=== PATIENT | female | born 1950 | race Caucasian/White ===

== ENCOUNTER 2017-07-26 06:20 | Day surgery (SDC) | payer MEDICARE, BC ==
[2017-07-26] MEDS ORDERED: Midazolam 1 MG/ML 2 ML SDV ONE (07:10)
[2017-07-26] MEDS ORDERED: fentaNYL 100 MCG/2 ML SDV ONE (07:10)
[2017-07-26] MEDS ORDERED: Propofol 200 MG/20 ML SDV ONE (07:10)
[2017-07-26] MEDS: Lactated Ringers 1,000 ML IV SCH (07:15)
--- NOTE | 2017-07-26 09:10 | OR ---
DATE OF PROCEDURE: 07/26/2017 PREOPERATIVE DIAGNOSES: Constipation, diarrhea, bloating, abdominal pain. POSTOPERATIVE DIAGNOSES: Constipation, diarrhea, bloating, abdominal pain, diverticulosis, incomplete colonoscopy. PROCEDURE: Colonoscopy attempted, successful only to about 20 cm from the anal verge. SURGEON: Jesús Nelson MD. ANESTHESIA: IV anesthesia with monitored anesthesia care. INDICATION: This 66-year-old white female is referred for a colonoscopy because of constipation alternating with diarrhea, bloating, and abdominal pain. She says her last colonoscopic exam was done in 2010. I counseled her for the procedure including risks and alternatives, and she gave her informed consent to proceed. DESCRIPTION OF PROCEDURE: The patient was placed in the left lateral decubitus position. IV anesthesia was administered by the Anesthesia Service. Time-out was held. A rectal exam was performed, which was unremarkable. The flexible video Olympus colonoscope was introduced through her anus, up her rectum, and out her colon. We were only able to go as far as 20 cm. At this point, the colon doubled back on itself. We could not negotiate around the corner. We attempted several maneuvers including applying abdominal compression with the patient in the left lateral and supine positions. It was clear we were not going to be able to go any higher. The scope was then slowly withdrawn , examining the distal colon and rectum. We saw a single small diverticulum. No other lesions were noted. The scope was retroflexed in the rectum with the distal rectum appearing unremarkable. The scope was straightened and removed. She tolerated the procedure well. I will order a barium enema. Jesús Nelson MD /[id number]
[2017-07-26] MEDS: Barium Sulfate 105% w/v Susp 1,900 ML Bottle PO ONE (09:13)
[2017-07-26 09:42] VITALS: BP 132/53
--- NOTE | 2017-07-26 10:08 | CR ---
Barium Enema Comp HISTORY: Incomplete colonoscopy. FINDINGS: Thin barium was administered retrograde into the colon. The colon demonstrates normal diste nsibility. There are a few scattered diverticula of the sigmoid colon. There is no evidence of coloni c stricture. No mucosal polyps are seen. There is reflux into a normal-appearing terminal ileum. Impression: 1. Colonic diverticulosis. 2. No stricture or mucosal polyp seen.
== END 2017-07-26 10:00 | disposition home or self-care (01) ==
LOC: JP.SDS 06:20
PROVIDERS: ATTEND Surgery
DX: K59.00 Constipation, unspecified (principal); K57.30 Diverticulosis of large intestine without perforation or abscess without bleeding; K21.9 Gastro-esophageal reflux disease without esophagitis; R19.7 Diarrhea, unspecified; Z88.5 Allergy status to narcotic agent
CPT/HCPCS: 74270; 74270-26; J2250; J2704; J3010; J7120

== ENCOUNTER 2018-12-16 11:08 | Emergency (ER) | payer MEDICARE ==
[2018-12-16 11:28] VITALS: BP 120/69; PULSE 51
--- NOTE | 2018-12-16 11:45 | EDM.PDOC ---
ED HPI GENERAL MEDICAL PROBLEM - General Chief Complaint: Lower Extremity Injury/Pain Stated Complaint: right foot surgery on toe Time Seen by Provider: 12/16/18 11:44 Source of Information: Reports: Patient, Family History Limitations: Reports: No Limitations - History of Present Illness INITIAL COMMENTS - FREE TEXT/NARRATIVE: Alert very pleasant 68 year old female presents to Er for worsening right foot pain over the last 24 hours. Patient had a bone spur removed from right medial great toe on Monday with direct service professional. Patient has been doing fairly well until yesterday afternoon patient noted increased pain with burning and irritation in surgical area and proximal. Patient states the pain is worse when the foot is elevated. Patient has been wearing her boot and elevating as much as possible Patient contacted the nurse line and ibuprofen/Motrin was recommended. Patient took 600mg last night and again at 8 am this morning. Patient has hydroxyzine 25 mg which she took at 6 am and hydrocodone which she took one at 8 am. Patient is due to hydroxyzine and hydrocodone at this time. Right Feet Pain Score (Numeric/FACES): 3 - Related Data Allergies Allergy/AdvReac Type Severity Reaction Status Date / Time codeine Allergy Hives Verified 07/26/17 06:52 Home Meds: Home Meds Esomeprazole [NexIUM] 40 mg PO DAILY 10/27/13 [History] Lovastatin 20 mg PO DAILY 10/27/13 [History] Pramipexole [Mirapex] 1 mg PO DAILY 10/27/13 [History] Sertraline HCl 100 mg PO DAILY 10/27/13 [History] Verapamil HCl [Verapamil ER] 120 mg PO DAILY 10/27/13 [History] Loratadine/Pseudoephedrine [Alavert D-12 Allergy-Sinus] 1 tab PO DAILY PRN 07/24 [History] traMADol HCl [Ultram] 50 mg PO Q6HR PRN 07/24/17 [History] Hydrocodone/Acetaminophen [Hydrocodon-Acetaminophen 5-325] 1 tab PO QID [History] hydrOXYzine pamoate [Hydroxyzine Pamoate] 25 mg PO TID PRN 12/16/18 [History] Past Medical History HEENT History: Reports: Allergic Rhinitis, Impaired Vision Cardiovascular History: Reports: Arrhythmia, High Cholesterol, Other (See Below) Other Cardiovascular History: PVC Respiratory History: Reports: Bronchitis, Recurrent Gastrointestinal History: Reports: Chronic Constipation, GERD Genitourinary History: Reports: Renal Calculus 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 Neck surgery from [facility] Psychiatric History: Reports: Anxiety Hematologic History: Reports: Anemia Oncologic (Cancer) History: Reports: Basal Cell Carcinoma, Other (See Below) Other Oncologic History: Vaginal precancerous tumor removed. Dermatologic History: Reports: Other (See Below) Other Dermatologic History: Basal cell - back of hand - Infectious Disease History Infectious Disease History: Reports: Chicken Pox, Measles, Mumps, Shingles - Past Surgical History HEENT Surgical History: Reports: None Respiratory Surgical History: Reports: None GI Surgical History: Reports: Appendectomy, Cholecystectomy, Colonoscopy Female Surgical History: Reports: Hysterectomy, Salpingo-Oophorectomy Musculoskeletal Surgical History: Reports: Carpal Tunnel, Other (See Below) Other Musculoskeletal Surgeries/Procedures:: Jaw surgery from [facility] Oncologic Surgical History: Reports: None Dermatological Surgical History: Reports: Skin Biopsy Social & Family History - Caffeine Use Caffeine Use: Reports: Tea Review of Systems - Review of Systems Review Of Systems: ROS reveals no pertinent complaints other than HPI. ED EXAM, GENERAL - Physical Exam Exam: See Below Exam Limited By: No Limitations General Appearance: Alert, WD/WN, Mild Distress (right foot pain) Eye Exam: Bilateral Eye: EOMI, PERRL Ears: Normal External Exam, Normal Canal, Hearing Grossly Normal Nose: Normal Inspection, Normal Mucosa Throat/Mouth: Normal Inspection, Normal Lips, Normal Teeth, Normal Gums, Normal Oropharynx, Normal Voice, No Airway Compromise Respiratory/Chest: No Respiratory Distress, Lungs Clear, Normal Breath Sounds, No Accessory Muscle Use Cardiovascular: Normal Peripheral Pulses, Regular Rate, Rhythm Extremities: Normal Inspection, Normal Range of Motion, No Pedal Edema, Joint Swelling (Right Foot: Splint and post surgical dressing was removed. surgical incision intact. erythema and pain proximal over extensor tendon of great toe and localized pain with erthyema and swelling over lateral surgical incision. Numbness and no pain medial to surgical incision. No signs of concerning post surgical infection.) Neurological: Alert, Oriented, CN II-XII Intact Psychiatric: Normal Affect, Normal Mood Skin Exam: Warm, Dry, Intact, Normal Color, No Rash ED TRAUMA EXTREMITY PROCEDURES - Additional/Other Procedure(s) Other (Free Text) Procedure(s): Post surgical splint and dressing removed, by me. Course - Vital Signs Last Recorded V/S: Last Vital Signs Temp 36.6 C 12/16/18 12:01 Pulse 51 L 12/16/18 12:01 Resp 17 12/16/18 12:01 BP 120/69 12/16/18 12:01 Pulse Ox 97 12/16/18 12:01 - Orders/Labs/Meds Meds: Medications Discontinued Medications Generic Name Dose Route Start Last Admin Trade Name Rubi PRN Reason Stop Dose Admin Bacitracin 1 dose 12/16/18 12:45 12/16/18 12:48 Bacitracin Oint 1 Gm TOP 12/16/18 12:46 1 dose ONETIME ONE Administration - Re-Assessments/Exams Free Text/Narrative Re-Assessment/Exam: Dressing was replaced by myself due to ER visit and splint reapplied. Patient' s pain is much improved and resting. Patient is able to ambulate and comfortable going home with . 12/16/18 13:01 Departure - Departure Time of Disposition: 12:57 Disposition: Home, Self-Care 01 Clinical Impression: Foot pain, right - Discharge Information Referrals: Foreign Davis MD [Primary Care Provider] - Forms: ED Department Discharge Additional Instructions: 1. Elevate as much as possible. Wear splint at all times as directed. 2. Continued Ibuprofen 600mg every 6 hours with food for pain and swelling. OR 3. Aleve 440mg 1-2 tablets every 12 hours for pain and swelling. 4. Continue Hydrocodone 1 tablet every 4-6 hrs for moderate to severe pain. 5. Continue Hydroxyzine 1 tablet every 6 hrs as directed for nausea, itching and pain. 6. See Surgeon on Monday as planned. Call if continued concerns today or tomorrow. 7. Return to ER to if severe pain, fever or unable to worsening symptoms or concerns. - Problem List & Annotations (1) Great toe pain SNOMED Code(s): 341340783 Code(s): M79.676 - PAIN IN UNSPECIFIED TOE(S) Status: Acute Current Visit : No
[2018-12-16] MEDS ORDERED: Bacitracin Oint 1 GM U/D Packet TOP ONE (12:45)
== END 2018-12-16 13:15 | disposition home or self-care (01) ==
LOC: JP.ED 11:08
DX: G89.18 Other acute postprocedural pain (principal); M79.674 Pain in right toe(s); F41.9 Anxiety disorder, unspecified; E78.00 Pure hypercholesterolemia, unspecified; Z88.5 Allergy status to narcotic agent; Z90.49 Acquired absence of other specified parts of digestive tract; Z90.722 Acquired absence of ovaries, bilateral; Z90.710 Acquired absence of both cervix and uterus; Z79.899 Other long term (current) drug therapy
CPT/HCPCS: 99283

== ENCOUNTER 2020-01-27 16:32 | Emergency (ER) | payer MEDICARE ==
[2020-01-27 18:02] VITALS: BP 181/103; PULSE 47
[2020-01-27] MEDS ORDERED: Sodium Chloride 0.9% 10 ML Syringe FLUSH PRN (18:11)
[2020-01-27] MEDS ORDERED: Morphine 2 MG/ML SYRINGE IVPUSH ONE (18:20)
[2020-01-27] MEDS ORDERED: Aspirin 81 MG Tab.Chew PO ONE (18:20)
[2020-01-27] MEDS ORDERED: Ondansetron 4 MG/2 ML SDV IVPUSH ONE (18:20)
--- NOTE | 2020-01-27 18:26 | EDM.PDOC ---
ED HPI GENERAL MEDICAL PROBLEM - General Chief Complaint: Gastrointestinal Problem Stated Complaint: WEAK,ABD PAIN Time Seen by Provider: 01/27/20 18:10 Source of Information: Reports: Patient, Old Records, RN History Limitations: Reports: No Limitations - History of Present Illness INITIAL COMMENTS - FREE TEXT/NARRATIVE: 69 yo female presents with upper abdomen since yesterday. Pain now lying in the ER is not bad. Has had nausea and vomiting with this. No abnormal BM's. Mild SOB with exertion. Has a pHx of surgery on her abdomen for her GB, appendix and adhesions. Took all her meds this morning. Thinks her normal HR is in the 50's, was 51 when last here 13 mos ago. No change with eating today, although she ate little. Onset: Gradual Onset Date: 01/26/20 Duration: Day(s): (1.5), Waxing/Waning Location: Reports: Chest Quality: Reports: Dull Severity: Mild Improves with: Reports: Rest Worsens with: Reports: Movement Context: Reports: Other (See HPI) Associated Symptoms: Reports: Chest Pain, Nausea/Vomiting, Shortness of Breath (mild with exertion only). Denies: Cough, Fever/Chills Treatments CLASSROOM AIDE: Reports: Other (see below) (none) Abdominal Pain Score (Numeric/FACES): 9 - Related Data Allergies Allergy/AdvReac Type Severity Reaction Status Date / Time codeine Allergy Hives Verified 01/27/20 18:03 Home Meds: Home Meds Esomeprazole [NexIUM] 40 mg PO DAILY 10/27/13 [History] Lovastatin 20 mg PO DAILY 10/27/13 [History] Pramipexole [Mirapex] 1 mg PO DAILY 10/27/13 [History] Sertraline HCl 100 mg PO DAILY 10/27/13 [History] Verapamil HCl [Verapamil ER] 120 mg PO DAILY 10/27/13 [History] Loratadine/Pseudoephedrine [Alavert D-12 Allergy-Sinus] 1 tab PO DAILY PRN 07/24/17 [History] Oxybutynin 5 mg PO DAILY 01/27/20 [History] Past Medical History HEENT History: Reports: Allergic Rhinitis, Cataract, Impaired Vision Cardiovascular History: Reports: Arrhythmia, High Cholesterol, Other (See Below) Other Cardiovascular History: PVC Respiratory History: Reports: Bronchitis, Recurrent Gastrointestinal History: Reports: Chronic Constipation, GERD Genitourinary History: Reports: Renal Calculus 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 Neck surgery from [facility] Psychiatric History: Reports: Anxiety Hematologic History: Reports: Anemia Oncologic (Cancer) History: Reports: Basal Cell Carcinoma, Other (See Below) Other Oncologic History: Vaginal precancerous tumor removed. Dermatologic History: Reports: Other (See Below) Other Dermatologic History: Basal cell - back of hand - Infectious Disease History Infectious Disease History: Reports: Chicken Pox, Measles, Mumps, Shingles - Past Surgical History Head Surgeries/Procedures: Reports: Other (See Below) HEENT Surgical History: Reports: None, Cataract Surgery Respiratory Surgical History: Reports: None GI Surgical History: Reports: Appendectomy, Cholecystectomy, Colonoscopy Female Surgical History: Reports: Hysterectomy, Salpingo-Oophorectomy Musculoskeletal Surgical History: Reports: Carpal Tunnel, Other (See Below) Other Musculoskeletal Surgeries/Procedures:: Jaw surgery from [facility] Oncologic Surgical History: Reports: None Dermatological Surgical History: Reports: Skin Biopsy Social & Family History - Tobacco Use Tobacco Use Status *Q: Current Every Day Tobacco User Years of Tobacco use: 50 Packs/Tins Daily: 1 - Caffeine Use Caffeine Use: Reports: None - Recreational Drug Use Recreational Drug Use: No ED ROS GENERAL - Review of Systems Review Of Systems: See Below Constitutional: Reports: No Symptoms HEENT: Reports: No Symptoms Respiratory: Denies: Shortness of Breath Cardiovascular: Reports: Dyspnea on Exertion. Denies: Chest Pain, Edema, Orthopnea, Palpitations, Syncope Endocrine: Reports: No Symptoms GI/Abdominal: Reports: Abdominal Pain (upper), Nausea, Vomiting. Denies: Black Stool, Bloody Stool, Constipation, Diarrhea, Hematemesis, Hematochezia, Melena, Stool Incontinence : Reports: No Symptoms Musculoskeletal: Reports: No Symptoms Skin: Reports: No Symptoms Neurological: Reports: No Symptoms Psychiatric: Reports: No Symptoms ED EXAM, GI/ABD - Physical Exam Exam: See Below Exam Limited By: No Limitations General Appearance: Alert, WD/WN, No Apparent Distress Eyes: Bilateral: Normal Appearance Ears: Normal External Exam, Normal Canal, Hearing Grossly Normal Nose: Normal Inspection Throat/Mouth: Normal Inspection, Normal Lips, Normal Oropharynx, Normal Voice, No Airway Compromise Head: Atraumatic, Normocephalic Neck: Normal Inspection Respiratory/Chest: No Respiratory Distress, Lungs Clear, Normal Breath Sounds, No Accessory Muscle Use Cardiovascular: Regular Rate, Rhythm, No Edema GI/Abdominal Exam: Normal Bowel Sounds, Soft, Non-Tender, No Distention Back Exam: Normal Inspection. No: CVA Tenderness (R), CVA Tenderness (L) Extremities: Normal Inspection, Normal Range of Motion, Non-Tender, No Pedal Edema. No: Pedal Edema, Leg Pain, Redness Neurological: Alert, Oriented, CN II-XII Intact, Normal Cognition, No Motor/Sensory Deficits Psychiatric: Normal Affect, Normal Mood Skin Exam: Warm, Dry, Intact, Normal Color, No Rash #1 Interpretation EKG Date: 01/27/20 Time: 18:30 Rhythm: NSR Rate (Beats/Min): 42 [place]: Normal P-Wave: Present QRS: Normal ST-T: Normal QT: Normal Comparison: NA - No Prior EKG (Inverted T's in III, AVF, V1-V3) Course - Vital Signs Last Recorded V/S: Last Vital Signs Temp 35.2 C L 01/27/20 18:00 Pulse 47 L 01/27/20 18:00 Resp 22 H 01/27/20 18:00 BP 181/103 H 01/27/20 18:00 Pulse Ox 97 01/27/20 18:00 - Orders/Labs/Meds Orders: Active Orders 24 hr Category Date Time Status Cardiac Monitoring [RC] .As Directed Care 01/27/20 18:09 Active EKG Documentation Completion [RC] ASDIRECTED Care 01/27/20 18:10 Active Abdomen 2V AP Flat Upright [CR] Stat Exams 01/27/20 19:27 Taken Sodium Chloride 0.9% [Saline Flush] Med 01/27/20 18:11 Active 10 ml FLUSH ASDIRECTED PRN Saline Lock Insert [OM.PC] Routine Oth 01/27/20 18:11 Ordered EKG 12 Lead [EK] Routine Ther 01/27/20 18:10 Ordered Medication Orders Sodium Chloride (Saline Flush) 10 ml FLUSH ASDIRECTED PRN PRN Reason: Keep Vein Open Last Admin: 01/27/20 19:09 Dose: 10 ml Documented by: PREILOR Labs: Laboratory Tests 1101/27/20 01/27/20 Range/Units 18:30 18:30 18:34 WBC 8.6 (4.5-11.0) K/uL RBC 4.44 (3.30-5.50) M/uL Hgb 13.1 (12.0-15.0) g/dL Hct 40.9 (36.0-48.0) % MCV 92 (80-98) fL MCH 30 (27-31) pg MCHC 32 (32-36) % Plt Count 250 (150-400) K/uL D-Dimer, Quantitative 539.34 H (0.0-500.0) ng/mL Sodium (140-148) mmol/L Potassium (3.6-5.2) mmol/L Chloride (100-108) mmol/L Carbon Dioxide (21-32) mmol/L Anion Gap (5.0-14.0) mmol/L BUN (7-18) mg/dL Creatinine (0.6-1.0) mg/dL Est Cr Clr Drug Dosing Estimated GFR (MDRD) (>60) Glucose (74-106) mg/dL Calcium (8.5-10.1) mg/dL Troponin I (0.000-0.056) ng/mL C-Reactive Protein 0.07 (0.0-0.3) mg/dL 01/27/20 Range/Units 18:34 WBC (4.5-11.0) K/uL RBC (3.30-5.50) M/uL Hgb (12.0-15.0) g/dL Hct (36.0-48.0) % MCV (80-98) fL MCH (27-31) pg MCHC (32-36) % Plt Count (150-400) K/uL D-Dimer, Quantitative (0.0-500.0) ng/mL Sodium 140 (140-148) mmol/L Potassium 3.9 (3.6-5.2) mmol/L Chloride 102 (100-108) mmol/L Carbon Dioxide 27 (21-32) mmol/L Anion Gap 11.4 (5.0-14.0) mmol/L BUN 19 H (7-18) mg/dL Creatinine 0.9 (0.6-1.0) mg/dL Est Cr Clr Drug Dosing TNP Estimated GFR (MDRD) > 60 (>60) Glucose 122 H (74-106) mg/dL Calcium 9.2 (8.5-10.1) mg/dL Troponin I < 0.017 (0.000-0.056) ng/mL C-Reactive Protein (0.0-0.3) mg/dL Meds: Medications Generic Name Dose Route Start Last Admin Trade Name Freq PRN Reason Stop Dose Admin Sodium Chloride 10 ml 01/27/20 18:11 01/27/20 19:09 Saline Flush FLUSH 10 ml ASDIRECTED PRN Administration Keep Vein Open Discontinued Medications Generic Name Dose Route Start Last Admin Trade Name Freq PRN Reason Stop Dose Admin Aspirin 324 mg 01/27/20 18:20 01/27/20 19:02 Aspirin PO 01/27/20 18:21 324 mg ONETIME ONE Administration Bisacodyl 10 mg 01/27/20 20:09 01/27/20 20:24 Dulcolax RECTAL 01/27/20 20:10 10 mg ONETIME ONE Administration Lactated Ringer's 1,000 mls @ 999 mls/hr 01/27/20 19:28 01/27/20 19:30 Ringers, Lactated IV 01/27/20 20:28 999 mls/hr BOLUS ONE Administration Morphine Sulfate 2 mg 01/27/20 18:20 01/27/20 19:04 Morphine IVPUSH 01/27/20 18:21 2 mg ONETIME ONE Administration Ondansetron HCl 4 mg 01/27/20 18:20 01/27/20 19:03 Zofran IVPUSH 01/27/20 18:21 4 mg ONETIME ONE Administration Polyethylene Glycol 34 gm 01/27/20 20:09 01/27/20 20:24 Miralax PO 01/27/20 20:10 34 gm ONETIME ONE Administration - Re-Assessments/Exams Free Text/Narrative Re-Assessment/Exam: 01/27/20 20:58 Had a small amt of hard stool after her Dulcolax supp Departure - Departure Time of Disposition: 21:00 Disposition: Home, Self-Care 01 Condition: Fair Clinical Impression: Mild dehydration Constipation Qualifiers: Constipation type: slow transit constipation Qualified Code(s): K59.01 - Slow transit constipation - Discharge Information *PRESCRIPTION DRUG MONITORING PROGRAM REVIEWED*: No *COPY OF PRESCRIPTION DRUG MONITORING REPORT IN PATIENT ENRIQUE: No Instructions: Constipation, Adult, [id number] Referrals: Foreign Davis MD [Primary Care Provider] - Forms: ED Department Discharge Additional Instructions: Use Zofran ODT every 8 hrs as needed for nausea control. Eat a diet rich in fiber. Get ample fluids and exercise. Recheck as needed. Take Miralax one dose twice daily until you have some very soft stools, then once daily to keep things moving. Sepsis Event Note (ED) - Evaluation Sepsis Screening Result: No Definite Risk - Focused Exam Vital Signs: Vital Signs Temp Pulse Resp BP Pulse Ox 01/27/20 18:00 35.2 C L 47 L 22 H 181/103 H 97 - My Orders Last 24 Hours: My Active Orders 01/27/20 18:09 Cardiac Monitoring [RC] .As Directed 01/27/20 18:10 EKG Documentation Completion [RC] ASDIRECTED EKG 12 Lead [EK] Routine 01/27/20 18:11 Sodium Chloride 0.9% [Saline Flush] 10 ml FLUSH ASDIRECTED PRN Saline Lock Insert [OM.PC] Routine 01/27/20 19:27 Abdomen 2V AP Flat Upright [CR] Stat - Assessment/Plan Last 24 Hours: My Active Orders 01/27/20 18:09 Cardiac Monitoring [RC] .As Directed 01/27/20 18:10 EKG Documentation Completion [RC] ASDIRECTED EKG 12 Lead [EK] Routine 01/27/20 18:11 Sodium Chloride 0.9% [Saline Flush] 10 ml FLUSH ASDIRECTED PRN Saline Lock Insert [OM.PC] Routine 01/27/20 19:27 Abdomen 2V AP Flat Upright [CR] Stat
[2020-01-27] MEDS ORDERED: Lactated Ringers 1,000 ML IV ONE (19:28)
[2020-01-27] MEDS ORDERED: Polyethylene Glycol 3350 Powder 17 GM Packet PO ONE (20:09)
[2020-01-27] MEDS ORDERED: Bisacodyl 10 MG Supp RECTAL ONE (20:09)
--- NOTE | 2020-01-28 10:11 | CR ---
Abdomen 2V AP Flat Upright CLINICAL HISTORY: Abdominal pain FINDINGS: No free air is identified. Small intestinal configuration is nonacute. There is some gas and feces in the right colon. Lung bases show some generalized interstitial prominence. IMPRESSION: Nonacute intestinal gas pattern Prominent interstitial lung markings in both lung bases. This is likely chronic
== END 2020-01-27 21:11 | disposition home or self-care (01) ==
LOC: JP.ED 16:32
DX: E86.0 Dehydration (principal); K59.01 Slow transit constipation; E78.00 Pure hypercholesterolemia, unspecified; K21.9 Gastro-esophageal reflux disease without esophagitis; F41.9 Anxiety disorder, unspecified; F17.210 Nicotine dependence, cigarettes, uncomplicated; Z88.5 Allergy status to narcotic agent; Z79.899 Other long term (current) drug therapy; Z90.49 Acquired absence of other specified parts of digestive tract; Z90.710 Acquired absence of both cervix and uterus
CPT/HCPCS: 36415; 74019; 80048; 84484; 85027; 85379; 86140; 93005; 96374; 96375; 99284; A9270; J2270; J2405; J7120; 93010

== ENCOUNTER 2021-07-28 20:18 | Emergency (ER) | payer MEDICARE ==
[2021-07-28] MEDS ORDERED: Ondansetron 4 MG/2 ML SDV IVPUSH ONE (21:03)
[2021-07-28] MEDS ORDERED: fentaNYL 50 MCG/ML SDV IVPUSH ONE ×2 (21:03→23:14)
[2021-07-28] MEDS ORDERED: Lactated Ringers 1,000 ML IV SCH (21:15)
[2021-07-28 22:02] VITALS: BP 177/98; PULSE 61
== END 2021-07-28 23:30 | disposition other institution (70) ==
LOC: JP.ED 20:18
DX: K56.609 Unspecified intestinal obstruction, unspecified as to partial versus complete obstruction (principal); E78.00 Pure hypercholesterolemia, unspecified; K21.9 Gastro-esophageal reflux disease without esophagitis; Z79.899 Other long term (current) drug therapy; Z88.8 Allergy status to other drugs, medicaments and biological substances
CPT/HCPCS: 36415; 43752; 71045; 74176; 80053; 83605; 83690; 85025; 96361; 96374; 96375; 99284; 99285-25; J2405; J3010; J7120

== ENCOUNTER 2021-08-05 06:21 | Emergency (ER) | payer MEDICARE ==
[2021-08-05 06:32] VITALS: BP 143/78; PULSE 73
[2021-08-05] MEDS ORDERED: Bacitracin Oint 1 GM U/D Packet TOP ONE (07:15)
[2021-08-05] MEDS ORDERED: Lidocaine 1% 5 ML VIAL INJECT ONE (07:15)
[2021-08-05] MEDS ORDERED: Diphtheria,Pertussis(Acell),Tetanus Vaccine 0.5 ML Syringe IM ONE (07:37)
== END 2021-08-05 08:09 | disposition home or self-care (01) ==
LOC: JP.ED 06:21
DX: S61.216A Laceration without foreign body of right little finger without damage to nail, initial encounter (principal); E78.00 Pure hypercholesterolemia, unspecified; K21.9 Gastro-esophageal reflux disease without esophagitis; Z90.49 Acquired absence of other specified parts of digestive tract; Z90.710 Acquired absence of both cervix and uterus; Z87.891 Personal history of nicotine dependence; Z79.899 Other long term (current) drug therapy; Z88.5 Allergy status to narcotic agent; Z23 Encounter for immunization; W26.8XXA Contact with other sharp object(s), not elsewhere classified, initial encounter
CPT/HCPCS: 12001; 90471; 90715; 99281; 99282-25

== ENCOUNTER 2022-02-02 02:48 | Emergency (ER) | payer MEDICARE ==
[2022-02-02 04:12] LABS: ESTIMATED GFR 68 mL/min (>60)
[2022-02-02] MEDS: HYDROmorphone 0.5 MG/0.5 ML Syringe IVPUSH ONE ×2 (04:15→11:56)
[2022-02-02] MEDS: Sodium Chloride 0.9% 10 ML Syringe FLUSH PRN (04:15)
[2022-02-02] MEDS: Sodium Chloride 0.9% 500 ML IV ONE (04:15)
[2022-02-02] MEDS: Ondansetron 4 MG/2 ML SDV IVPUSH ONE (04:15)
[2022-02-02] MEDS: Iopamidol 612 MG/ML 100 ML Bottle IV STA (04:36)
[2022-02-02] MEDS: Sodium Chloride 0.9% 50 ML IV STA (04:37)
[2022-02-02] MEDS: Lactated Ringers 1,000 ML IV SCH (05:25)
[2022-02-02 12:14] VITALS: BP 103/54; PULSE 58
[2022-02-02] MEDS: LORazepam 2 MG/ML SDV IVPUSH ONE (12:59)
== END 2022-02-02 13:30 ==
LOC: JP.ED 02:48
DX: K56.609 Unspecified intestinal obstruction, unspecified as to partial versus complete obstruction (principal); R68.83 Chills (without fever); E78.00 Pure hypercholesterolemia, unspecified; K21.9 Gastro-esophageal reflux disease without esophagitis; M19.90 Unspecified osteoarthritis, unspecified site; Z88.5 Allergy status to narcotic agent; Z79.899 Other long term (current) drug therapy; Z20.822 Contact with and (suspected) exposure to COVID-19
CPT/HCPCS: 36415; 43752; 74177; 80053; 83605; 83690; 85025; 96361; 96374; 96375; 96376; 99285-25; J1170; J2060; J2405; J3490; J7040; J7120; Q9967; U0002

== ENCOUNTER 2023-06-17 19:14 | Emergency (ER) | payer MEDICARE ==
[2023-06-17] MEDS ORDERED: Sodium Chloride 0.9% 10 ML Syringe FLUSH PRN (20:01)
[2023-06-17 20:14] LABS: HEMATOCRIT 27.5 % (34.3-46.0); HEMOGLOBIN 9.2 g/dL (11.2-15.5); MEAN CORPUSCULAR HEMOGLOBIN 30.4 pg (31.6-35.5); MEAN CORPUSCULAR HGB CONC 33.5 g/dL (31.6-35.5); MEAN CORPUSCULAR VOLUME 90.8 fL (81.4-99.0); PLATELET COUNT,PLT 210 K/uL (130-375); RED BLOOD CELL COUNT 3.03 M/uL (3.77-5.24); WHITE BLOOD CELL COUNT,WBC 7.9 K/uL (3.2-11.0)
[2023-06-17 20:32] LABS: INR 0.9; PROTHROMBIN TIME 9.2 sec (9.2-10.6)
[2023-06-17 20:38] LABS: A/G RATIO 0.9 (1.2-2.2); ALANINE AMINOTRANSFERASE,ALT 41 U/L (12-78); ALBUMIN 2.8 g/dL (3.4-5.0); ALKALINE PHOSPHATASE 131 U/L (46-116); ANION GAP 15.2 mmol/L (5.0-14.0); ASPARTATE AMNIOTRANSFERASE,AST 36 U/L (15-37); BAND ABSOLUTE MAN 0.16 K/uL; BAND PERCENT MAN 2 % (5-11); BILIRUBIN TOTAL 0.4 mg/dL (0.2-1.0); BLOOD UREA NITROGEN,BUN 17 mg/dL (7-18); CALCIUM 8.7 mg/dL (8.5-10.1); CARBON DIOXIDE,CO2 25 mmol/L (21-32); CHLORIDE,CL 103 mmol/L (100-108); CREATININE 0.7 mg/dL (0.6-1.0); EOSINOPHILS ABSOLUTE MAN 0.47 K/uL (0.00-0.40); EOSINOPHILS PERCENT MAN 6 % (2-4); EST CRCL DRUG DOSING (CG) 52.18 mL/min; ESTIMATED GFR 92 mL/min (>60); GLUCOSE RANDOM 109 mg/dL (74-106); LYMPHOCYTES ABSOLUTE MAN 1.66 K/uL (0.8-3.3); LYMPHOCYTES PERCENT MAN 21 % (24-44); METAMYELOCYTE ABSOLUTE MAN 0.24 K/uL; METAMYELOCYTE PERCENT MAN 3 %; MONOCYTES ABSOLUTE MAN 0.32 K/uL (0.20-0.90); MONOCYTES PERCENT MAN 4 % (2-6); NEUTROPHILS ABSOLUTE MAN 5.06 K/uL (1.0-7.6); POTASSIUM,K 4.2 mmol/L (3.6-5.2); PROTEIN TOTAL,TP 6.1 g/dL (6.4-8.2); SEG NEUTROPHILS PERCENT MAN 64 % (36-66); SODIUM,NA 139 mmol/L (140-148)
[2023-06-17] MEDS: Sodium Chloride 0.9% 100 ML IV SCH (20:55)
[2023-06-17] MEDS: Iopamidol 612 MG/ML 100 ML Bottle IV SCH (20:55)
[2023-06-17 21:45] VITALS: BP 119/62; PULSE 62
== END 2023-06-17 23:11 | disposition home or self-care (01) ==
LOC: JP.ED 19:14
DX: R60.0 Localized edema (principal); E78.00 Pure hypercholesterolemia, unspecified; Z90.710 Acquired absence of both cervix and uterus; Z88.5 Allergy status to narcotic agent; Z90.49 Acquired absence of other specified parts of digestive tract; Z79.899 Other long term (current) drug therapy
CPT/HCPCS: 36415; 71275; 73502; 80053; 84484; 85025; 85610; 93005; 93010; 93971; 99285; J3490; Q9967

== ENCOUNTER 2024-06-13 15:26 | Emergency (ER) | payer OTHER, MEDICARE ==
[2024-06-13 15:48] VITALS: BP 116/52; PULSE 72
[2024-06-13 16:59] LABS: HEMATOCRIT 31.5 % (34.3-46.0); HEMOGLOBIN 10.5 g/dL (11.2-15.5); MEAN CORPUSCULAR HEMOGLOBIN 31.3 pg (31.6-35.5); MEAN CORPUSCULAR HGB CONC 33.3 g/dL (31.6-35.5); RED BLOOD CELL COUNT 3.35 M/uL (3.77-5.24); WHITE BLOOD CELL COUNT,WBC 5.8 K/uL (3.2-11.0)
== END 2024-06-13 17:42 | disposition home or self-care (01) ==
LOC: JP.ED 15:26
DX: S80.01XA Contusion of right knee, initial encounter (principal); E78.00 Pure hypercholesterolemia, unspecified; F17.210 Nicotine dependence, cigarettes, uncomplicated; Z88.5 Allergy status to narcotic agent; Z79.899 Other long term (current) drug therapy; V47.5XXA Car driver injured in collision with fixed or stationary object in traffic accident, initial encounter; Y93.89 Activity, other specified
CPT/HCPCS: 36415; 85027; 99283; 99284